=== PATIENT | male | born 1940 | race Caucasian/White ===

== ENCOUNTER → 2018-12-19 | Outpatient (CLI) | payer MEDICARE ==
--- NOTE | 2018-12-19 13:02 | RAD ---
CT of the chest without contrast, 12/19/2018: HISTORY: Pulmonary infiltrate Noncontrast scans were obtained as requested. There is mild calcific plaquing of the thoracic aorta without evidence of aneurysm. A couple of minimal coronary artery calcifications are noted. There are calcified right hilar and subcarinal lymph nodes compatible with old granulomatous disease. Additional small scattered mediastinal lymph nodes are seen without evidence of pathologic enlargement. There is a calcified granuloma in the right lower lobe. A couple of other tiny nodules are present, including nodules in the right upper lobe on images 12 and 21 of series #2. These measure approximately 2 mm. They may be additional granulomas, although that cannot be stated with certainty. There is a tiny calcified granuloma in the left lower lobe. There are mild patchy infiltrates in the lower chest bilaterally consisting of a combination of groundglass and reticular opacities. These involve both lower lobes and the lingula as well as to a lesser degree the right middle lobe. There 2 small calcified pleural plaques in the left lung base posteriorly. No pleural fluid is evident. Limited views of the upper abdomen demonstrate mild decreased density in the liver compatible with hepatic steatosis. There are mild bilateral perinephric streaky densities suggesting scarring or edema. IMPRESSION: 1. Old healed granulomatous disease in the chest. 2. Several additional tiny scattered lung nodules are probably granulomas, although a neoplastic etiology cannot be excluded. 3. Minimal calcific pleural plaquing in the left lower chest. 4. Patchy bilateral groundglass and interstitial lower chest infiltrates with diagnostic considerations including scarring, atypical pneumonia or a combination of the above. 5. Hepatic steatosis. PQRS Compliance Statement: One or more of the following individualized dose reduction techniques were utilized for this examination: 1. Automated exposure control 2. Adjustment of the mA and/or kV according to patient size 3. Use of iterative reconstruction technique Electronically signed by: Natalio Jeffrey MD (12/19/2018 12:59 PM) [facility]
== END | disposition home or self-care (01) ==
LOC: CT 09:54
PROVIDERS: ATTEND Internal Medicine Critical Care Medicine
DX: J84.10 Pulmonary fibrosis, unspecified (principal); R91.8 Other nonspecific abnormal finding of lung field; I70.0 Atherosclerosis of aorta; I25.10 Atherosclerotic heart disease of native coronary artery without angina pectoris; K76.0 Fatty (change of) liver, not elsewhere classified
CPT/HCPCS: 71250

== ENCOUNTER → 2020-07-20 | Outpatient (CLI) | payer MEDICARE ==
[2020-05-06 15:00] VITALS: BP 106/65
[~2020-07-20] MED LIST: ATOR20TA58 PO; DIAZ2TAB3 PO; FURO20TA3 PO; FURO40TA4 PO; IBUP-1027 PO; PRED-220 PO; PREG150C PO; RIVA10TA PO; RIVA20TA2 PO
--- NOTE | 2020-07-20 16:25 | RAD ---
EXAM: PA and Lateral Views of the Chest DATE: 07/20/2020 12:00 AM INDICATION: DYSPNEA COMPARISON: And 30/10/2019 FINDINGS: The heart is not enlarged. Aorta is tortuous. Diffuse parenchymal opacities in the left lung and right lung base. These opacities, particularly in the right lung are new/increased compared to 05/04/2020. No pleural effusion or pneumothorax. IMPRESSION: Background of interstitial opacities and groundglass opacities, increased compared to 05/04/2020 likely from background of interstitial disease although superimposed infectious process is not excluded. Electronically signed by: Clayton Cuevas MD (07/20/2020 4:22 PM) [facility]
== END ==
LOC: RAD 11:05
PROVIDERS: ATTEND Internal Medicine Pulmonary Disease
DX: R06.00 Dyspnea, unspecified (principal)
CPT/HCPCS: 71046